=== PATIENT | female | born 1950 | race Caucasian/White ===

== ENCOUNTER 2023-06-14 14:26 | Inpatient (IN) ==
[2023-06-14 15:09] LABS: Hemoglobin 10.9 g/dL (11.5-14.3); Mean Corpuscular Hemoglobin 32.1 pg (27-33); Mean Corpuscular Volume 97.2 fL (80-97); Mean Platelet Volume 9.4 fL (7.5-11.2); Platelet Count 263 10^3/uL (150-450); Red Blood Count 3.39 10^6/uL (3.63-4.92); Red Cell Distribution Width 14.1 % (12-17); White Blood Count 16.2 10^3/uL (3.8-11.8)
[2023-06-14] MEDS: Morphine 4 MG/ML VIAL (1 ml) IV ONE (15:17)
[2023-06-14 15:22] LABS: INR 0.92 (0.83-1.13)
[2023-06-14 15:48] LABS: Albumin 4.1 g/dL (3.2-5.2); Albumin/Globulin Ratio 1.5 (1-3); Calcium 10.1 mg/dL (8.6-10.3); Creatinine, Serum 2.61 mg/dL (0.51-0.95); Direct Bilirubin 0.1 mg/dL (0.03-0.18); Globulin 2.8 g/dL (2-4); HDL Cholesterol 51.4 mg/dL; Indirect Bilirubin 0.5 mg/dL (0.3-1.0); Potassium 3.9 mmol/L (3.5-5.0); Total Bilirubin 0.6 mg/dL (0.2-1.0); Total Protein 6.9 g/dL (6.4-8.9); eGFR CKD-EPI 18.6 (>60)
[2023-06-14 16:05] LABS: ABS Lymphocytes 0.7 10^3/uL (1.0-4.8); ABS Monocytes 1.6 10^3/uL (0.0-0.9); ABS Neutrophils 13.9 10^3/uL (1.5-7.6); Eosinophil % 0.1 %; Lymphocyte % 4.5 %
[2023-06-14 16:27] LABS: Urine Appearance Turbid; Urine Bilirubin Negative (Negative); Urine Blood Trace (Negative); Urine Color Colorless; Urine Glucose 1+ (>=70 mg/dL) (Negative); Urine Ketones Negative (Negative); Urine Nitrite Negative (Negative); Urine Protein 1+ (>=30 mg/dL) (Negative); Urine Specific Gravity 1.011 (1.002-1.030); Urine Urobilinogen Negative (Negative)
[2023-06-14 17:17] LABS: Urine Bacteria 1+ /HPF (Absent); Urine Red Blood Cell 1+(3-5/hpf) /HPF (0-Trace); Urine White Blood Cell 3+(>20/hpf) /HPF (0-Trace)
[2023-06-14] MEDS ORDERED: Dextrose 50% Syringe 50 ml 25 GM/50 ML SYRINGE IV PUSH PRN (19:59)
[2023-06-14] MEDS ORDERED: Enoxaparin 40 MG/0.4 ML SYR SUBCUT SCH (21:00)
[2023-06-14] MEDS: Heparin 5000 UNITS/ML 1 mL VIAL SUBCUT SCH (21:25)
[2023-06-14 21:50] LABS: ABS Lymphocytes 0.3 10^3/uL (1.0-4.8); ABS Monocytes 1.3 10^3/uL (0.0-0.9); ABS Neutrophils 10.9 10^3/uL (1.5-7.6); ABS Nucleated RBC 0.01 10^3/ul; Eosinophil % 0.1 %; Hematocrit 31.8 % (35-45); Hemoglobin 10.8 g/dL (11.5-14.3); Lymphocyte % 2.7 %; Mean Corpuscular Hemoglobin 32.8 pg (27-33); Mean Corpuscular Hgb Conc 33.9 g/dL (31-36); Mean Corpuscular Volume 96.9 fL (80-97); Mean Platelet Volume 9.7 fL (7.5-11.2); Nucleated Red Blood Cells % 0.1 %/100WBC (0.0-0.8); Platelet Count 246 10^3/uL (150-450); Red Blood Count 3.28 10^6/uL (3.63-4.92); Red Cell Distribution Width 13.9 % (12-17); White Blood Count 12.6 10^3/uL (3.8-11.8)
[2023-06-14 21:52] LABS: Activated Partial Thrombo Time 25.6 seconds (26.0-38.0); INR 0.93 (0.83-1.13)
[2023-06-14 22:26] LABS: Creatinine, Serum 2.59 mg/dL (0.51-0.95); eGFR CKD-EPI 18.8 (>60)
[2023-06-15] MEDS: cefTRIAXone 1 gm/50 mL D5W 1 GM/50 ML BAG IV SCH (00:12)
[2023-06-15 07:20] LABS: Hematocrit 30.5 % (35-45); Hemoglobin 10.3 g/dL (11.5-14.3); Mean Corpuscular Hemoglobin 32.8 pg (27-33); Mean Corpuscular Hgb Conc 33.7 g/dL (31-36); Mean Corpuscular Volume 97.6 fL (80-97); Mean Platelet Volume 9.7 fL (7.5-11.2); Platelet Count 232 10^3/uL (150-450); Red Blood Count 3.13 10^6/uL (3.63-4.92); Red Cell Distribution Width 13.7 % (12-17); White Blood Count 12.5 10^3/uL (3.8-11.8)
[2023-06-15 07:48] LABS: Calcium 9.9 mg/dL (8.6-10.3); Creatinine, Serum 2.57 mg/dL (0.51-0.95); Potassium 3.9 mmol/L (3.5-5.0); eGFR CKD-EPI 18.9 (>60)
[2023-06-15] MEDS: Polyethylene Glycol 3350 17 GM PACKET PO SCH (08:57)
[2023-06-15 10:01] LABS: ABS Lymphocytes 0.5 10^3/uL (1.0-4.8); ABS Monocytes 1.8 10^3/uL (0.0-0.9); ABS Neutrophils 10.2 10^3/uL (1.5-7.6); Eosinophil % 0.1 %; Lymphocyte % 3.9 %
[2023-06-15] MEDS ORDERED: Sulfur Hexaflouride MICROSPHR 25 MG VIAL ONE (15:07)
[2023-06-15 17:46] LABS: Ferritin 56.4 ng/mL (11-307)
[2023-06-15 17:50] LABS: Folate 14.42 ng/mL (5.90-24.80)
[2023-06-15] MEDS: Nystatin TOP POWDER 15 GM BTL TOPICAL SCH (22:22)
[2023-06-15] MEDS: Lactated Ringers 1000 ml BAG 1,000 ML IV ONE (23:55)
[2023-06-17 06:05] LABS: ABS Monocytes 1.2 10^3/uL (0.0-0.9); ABS Neutrophils 4.5 10^3/uL (1.5-7.6); ABS Nucleated RBC 0.02 10^3/ul; Eosinophil % 0.1 %; Hematocrit 29.3 % (35-45); Lymphocyte % 15.4 %; Mean Corpuscular Hemoglobin 33.3 pg (27-33); Mean Corpuscular Hgb Conc 34.1 g/dL (31-36); Mean Corpuscular Volume 97.7 fL (80-97); Mean Platelet Volume 9.1 fL (7.5-11.2); Nucleated Red Blood Cells % 0.2 %/100WBC (0.0-0.8); Platelet Count 201 10^3/uL (150-450); Red Cell Distribution Width 14.2 % (12-17); White Blood Count 6.8 10^3/uL (3.8-11.8)
[2023-06-17] MEDS: Benzocaine/Menthol LOZ PO PRN (15:15)
[2023-06-17] MEDS ORDERED: Dextrose 50% Syringe 50 ml 25 GM/50 ML SYRINGE IV PUSH PRN (22:55)
[2023-06-18] MEDS ORDERED: Bismuth Subsalicylate (BTL) 525 MG/30 ML (BULK BTL) PO PRN (23:35)
[2023-06-19] MEDS: CMCS:OMEGA-3 FATTY ACID 1000 mg(NF) PO SCH (09:36)
[2023-06-19] MEDS: Calcium Carb (TUMS) 500 mg CHEW TAB PO SCH (09:37)
[2023-06-19] MEDS: Cholecalciferol (VIT D3) 1,000 unit TAB PO SCH (09:37)
[2023-06-19 17:41] LABS: ABS Lymphocytes 1.3 10^3/uL (1.0-4.8); ABS Monocytes 0.6 10^3/uL (0.0-0.9); ABS Neutrophils 4.9 10^3/uL (1.5-7.6); ABS Nucleated RBC 0.01 10^3/ul; Eosinophil % 0.5 %; Hemoglobin 9.6 g/dL (11.5-14.3); Lymphocyte % 18.4 %; Mean Corpuscular Hemoglobin 34.7 pg (27-33); Mean Corpuscular Hgb Conc 35.4 g/dL (31-36); Mean Corpuscular Volume 97.9 fL (80-97); Mean Platelet Volume 9.2 fL (7.5-11.2); Nucleated Red Blood Cells % 0.1 %/100WBC (0.0-0.8); Platelet Count 222 10^3/uL (150-450); Red Blood Count 2.75 10^6/uL (3.63-4.92); Red Cell Distribution Width 13.7 % (12-17); White Blood Count 6.8 10^3/uL (3.8-11.8)
[2023-06-19 18:05] LABS: Anion Gap 12 mmol/L (2-16); Blood Urea Nitrogen 50 mg/dL (6-24); C Reactive Protein 22.21 mg/L (<8.01); CO2 Carbon Dioxide 21 mmol/L (22-32); Calcium 8.9 mg/dL (8.6-10.3); Chloride 103 mmol/L (101-111); Creatinine, Serum 2.53 mg/dL (0.51-0.95); Glucose 283 mg/dL (70-100); Sodium 136 mmol/L (135-145); eGFR CKD-EPI 19.3 (>60)
[2023-06-19 18:15] LABS: ALT 32 U/L (7-52); AST 29 U/L (13-39); Albumin 3.1 g/dL (3.2-5.2); Albumin/Globulin Ratio 1.3 (1-3); Alkaline Phosphatase 82 U/L (35-149); Globulin 2.4 g/dL (2-4); Total Bilirubin 0.2 mg/dL (0.2-1.0); Total Protein 5.5 g/dL (6.4-8.9)
[2023-06-19] MEDS ORDERED: Valproic Acid IV 500 MG in NS 0.9% 100 ml BAG 100 ML IVPB SCH (22:00)
[2023-06-20 22:25] LABS: Glucose Confirmatory 498 mg/dL (70-100)
[2023-06-20] MEDS ORDERED: Dextrose 50% Syringe 50 ml 25 GM/50 ML SYRINGE IV PUSH PRN (22:34)
[2023-06-21 08:57] LABS: Hematocrit 31.6 % (35-45); Hemoglobin 10.8 g/dL (11.5-14.3); Mean Corpuscular Hemoglobin 33.3 pg (27-33); Mean Corpuscular Hgb Conc 34.3 g/dL (31-36); Mean Corpuscular Volume 97.1 fL (80-97); Mean Platelet Volume 8.5 fL (7.5-11.2); Platelet Count 259 10^3/uL (150-450); Red Blood Count 3.25 10^6/uL (3.63-4.92); Red Cell Distribution Width 13.8 % (12-17); White Blood Count 9.9 10^3/uL (3.8-11.8)
[2023-06-21 09:40] LABS: Calcium 9.1 mg/dL (8.6-10.3); Creatinine, Serum 2.2 mg/dL (0.51-0.95); Potassium 4.8 mmol/L (3.5-5.0); eGFR CKD-EPI 22.8 (>60)
[2023-06-21 09:58] LABS: ABS Lymphocytes 1.4 10^3/uL (1.0-4.8); ABS Monocytes 0.9 10^3/uL (0.0-0.9); ABS Neutrophils 7.6 10^3/uL (1.5-7.6); ABS Nucleated RBC 0.01 10^3/ul; Eosinophil % 0.2 %; Lymphocyte % 14.2 %; Nucleated Red Blood Cells % 0.1 %/100WBC (0.0-0.8); RBC Morphology Normal (Normal)
[2023-06-24 13:12] LABS: Hematocrit 38.3 % (35-45); Hemoglobin 12.7 g/dL (11.5-14.3); Mean Corpuscular Hemoglobin 32.6 pg (27-33); Mean Corpuscular Hgb Conc 33.1 g/dL (31-36); Mean Corpuscular Volume 98.6 fL (80-97); Platelet Count 380 10^3/uL (150-450); Red Blood Count 3.88 10^6/uL (3.63-4.92); Red Cell Distribution Width 13.8 % (12-17); White Blood Count 13.6 10^3/uL (3.8-11.8)
[2023-06-24 13:17] LABS: Glucose Confirmatory 412 mg/dL (70-100)
[2023-06-24 14:34] LABS: ABS Lymphocytes 1.1 10^3/uL (1.0-4.8); ABS Monocytes 1.2 10^3/uL (0.0-0.9); ABS Neutrophils 11.3 10^3/uL (1.5-7.6); ABS Nucleated RBC 0.02 10^3/ul; Eosinophil % 0.1 %; Lymphocyte % 8.1 %; Nucleated Red Blood Cells % 0.2 %/100WBC (0.0-0.8)
[2023-06-24 19:23] LABS: Polychromasia 2+
[2023-06-24 19:24] LABS: Anisocytosis 1+; RBC Morphology Normal (Normal); Target Cells 1+; Tear Drop Cells 1+
[2023-06-25] MEDS: Polyethylene Glycol 3350 17 GM PACKET PO ONE (05:16)
[2023-06-25 16:52] LABS: Glucose Confirmatory 489 mg/dL (70-100)
[2023-06-26 06:41] LABS: Hematocrit 31.1 % (35-45); Hemoglobin 10.7 g/dL (11.5-14.3); Mean Corpuscular Hemoglobin 32.9 pg (27-33); Mean Corpuscular Hgb Conc 34.3 g/dL (31-36); Mean Platelet Volume 9.1 fL (7.5-11.2); Platelet Count 335 10^3/uL (150-450); Red Blood Count 3.24 10^6/uL (3.63-4.92); Red Cell Distribution Width 13.9 % (12-17); White Blood Count 16.7 10^3/uL (3.8-11.8)
[2023-06-26 07:28] LABS: Calcium 9.6 mg/dL (8.6-10.3); Creatinine, Serum 2.96 mg/dL (0.51-0.95); Potassium 5.3 mmol/L (3.5-5.0)
[2023-06-26 08:17] LABS: ABS Lymphocytes 1.1 10^3/uL (1.0-4.8); ABS Monocytes 1.3 10^3/uL (0.0-0.9); ABS Neutrophils 14.2 10^3/uL (1.5-7.6); ABS Nucleated RBC 0.01 10^3/ul; Anisocytosis 1+; Lymphocyte % 6.8 %; Tear Drop Cells 1+
[2023-06-27 09:21] LABS: Hematocrit 31.9 % (35-45); Hemoglobin 10.8 g/dL (11.5-14.3); Mean Corpuscular Hemoglobin 32.9 pg (27-33); Mean Corpuscular Hgb Conc 33.9 g/dL (31-36); Mean Corpuscular Volume 96.9 fL (80-97); Platelet Count 327 10^3/uL (150-450); Red Cell Distribution Width 13.8 % (12-17); White Blood Count 10.7 10^3/uL (3.8-11.8)
[2023-06-27 09:41] LABS: Calcium 9.3 mg/dL (8.6-10.3); Creatinine, Serum 2.92 mg/dL (0.51-0.95); Potassium 5.2 mmol/L (3.5-5.0); eGFR CKD-EPI 16.2 (>60)
[2023-06-27 10:06] LABS: ABS Lymphocytes 0.9 10^3/uL (1.0-4.8); ABS Monocytes 0.8 10^3/uL (0.0-0.9); ABS Neutrophils 8.9 10^3/uL (1.5-7.6); Lymphocyte % 8.9 %; RBC Morphology Normal (Normal)
[2023-06-28 06:28] LABS: Hematocrit 30.1 % (35-45); Hemoglobin 10.2 g/dL (11.5-14.3); Mean Corpuscular Hemoglobin 32.8 pg (27-33); Mean Corpuscular Volume 96.4 fL (80-97); Mean Platelet Volume 9.2 fL (7.5-11.2); Platelet Count 326 10^3/uL (150-450); Red Blood Count 3.12 10^6/uL (3.63-4.92); Red Cell Distribution Width 13.9 % (12-17); White Blood Count 10.2 10^3/uL (3.8-11.8)
[2023-06-28 06:46] LABS: Calcium 9.3 mg/dL (8.6-10.3); Creatinine, Serum 3.01 mg/dL (0.51-0.95); Magnesium 2.3 mg/dL (1.9-2.7); Potassium 4.9 mmol/L (3.5-5.0); eGFR CKD-EPI 15.7 (>60)
[2023-06-28 08:23] LABS: ABS Monocytes 0.8 10^3/uL (0.0-0.9); ABS Neutrophils 8.4 10^3/uL (1.5-7.6); ABS Nucleated RBC 0.01 10^3/ul; Lymphocyte % 9.5 %; Nucleated Red Blood Cells % 0.1 %/100WBC (0.0-0.8); RBC Morphology Normal (Normal)
[2023-06-28] MEDS: NS 0.9% 1000 ml BAG 1,000 ML IV SCH (15:52)
[2023-06-28] MEDS: Insulin GLARGINE 100 un/ml 10 ml VIAL SUBCUT SCH (22:00)
[2023-06-29 08:28] LABS: Hematocrit 28.2 % (35-45); Hemoglobin 9.3 g/dL (11.5-14.3); Mean Corpuscular Hemoglobin 32.5 pg (27-33); Mean Corpuscular Hgb Conc 32.9 g/dL (31-36); Mean Platelet Volume 9.4 fL (7.5-11.2); Platelet Count 247 10^3/uL (150-450); Red Blood Count 2.85 10^6/uL (3.63-4.92); Red Cell Distribution Width 14.2 % (12-17); White Blood Count 9.7 10^3/uL (3.8-11.8)
[2023-06-29 09:01] LABS: ABS Lymphocytes 1.1 10^3/uL (1.0-4.8); ABS Monocytes 0.8 10^3/uL (0.0-0.9); ABS Neutrophils 7.9 10^3/uL (1.5-7.6); ABS Nucleated RBC 0.01 10^3/ul; Hypochromasia 1+; Lymphocyte % 10.9 %; Nucleated Red Blood Cells % 0.1 %/100WBC (0.0-0.8)
[2023-06-29 09:13] LABS: Anion Gap 12 mmol/L (2-16); Blood Urea Nitrogen 84 mg/dL (6-24); CO2 Carbon Dioxide 15 mmol/L (22-32); Calcium 8.7 mg/dL (8.6-10.3); Chloride 104 mmol/L (101-111); Creatinine, Serum 2.43 mg/dL (0.51-0.95); Glucose 172 mg/dL (70-100); Sodium 131 mmol/L (135-145); eGFR CKD-EPI 20.2 (>60)
[2023-06-29 09:57] LABS: PCO2 Arterial 37 mmHg (35-45)
[2023-06-29 10:05] LABS: PO2 Arterial 42 mmHg (80-100)
[2023-06-29] MEDS: SODIUM BICARB IV SCH (10:47)
[2023-06-29] MEDS: D5W IV SCH (10:47)
[2023-06-29] MEDS: 1/2 NS IV SCH (10:47)
[2023-06-29 11:30] LABS: Calcium 8.9 mg/dL (8.6-10.3); Creatinine, Serum 2.77 mg/dL (0.51-0.95); Magnesium 2.2 mg/dL (1.9-2.7); Phosphorus 4.6 mg/dL (2.5-5.0); Potassium 4.4 mmol/L (3.5-5.0); eGFR CKD-EPI 17.3 (>60)
[2023-06-29] MEDS: DULoxetine DR 20 mg CAP PO SCH (16:28)
[2023-06-29] MEDS: Insulin GLARGINE 100 un/ml 10 ml VIAL SUBCUT SCH (21:14)
[2023-06-30 09:16] LABS: Calcium 8.8 mg/dL (8.6-10.3); Creatinine, Serum 2.36 mg/dL (0.51-0.95); Phosphorus 3.6 mg/dL (2.5-5.0); Potassium 4.2 mmol/L (3.5-5.0)
[2023-06-30] MEDS: 1/2 NS IV SCH ×2 (14:45→15:45)
[2023-06-30] MEDS: SODIUM BICARB IV SCH ×2 (14:45→15:45)
[2023-06-30] MEDS: D5W IV SCH ×2 (14:45→15:45)
[2023-06-30] MEDS: Furosemide 20 mg/2 ml IV VIAL IV SCH (16:31)
[2023-06-30 17:06] LABS: Hematocrit 30.6 % (35-45); Hemoglobin 10.5 g/dL (11.5-14.3); Mean Corpuscular Hemoglobin 32.8 pg (27-33); Mean Corpuscular Hgb Conc 34.2 g/dL (31-36); Mean Corpuscular Volume 96.1 fL (80-97); Mean Platelet Volume 9.1 fL (7.5-11.2); Platelet Count 363 10^3/uL (150-450); Red Blood Count 3.19 10^6/uL (3.63-4.92); Red Cell Distribution Width 13.6 % (12-17); White Blood Count 11.5 10^3/uL (3.8-11.8)
[2023-06-30 17:26] LABS: Glucose Confirmatory 412 mg/dL (70-100)
[2023-06-30 17:27] LABS: ABS Neutrophils 9.5 10^3/uL (1.5-7.6); ABS Nucleated RBC 0.02 10^3/ul; Eosinophil % 0.1 %; Lymphocyte % 8.6 %; Nucleated Red Blood Cells % 0.1 %/100WBC (0.0-0.8)
[2023-06-30] MEDS ORDERED: Dextrose 50% Syringe 50 ml 25 GM/50 ML SYRINGE IV PUSH PRN (17:40)
[2023-06-30] MEDS: Insulin GLARGINE 100 un/ml 10 ml VIAL SUBCUT SCH (20:42)
[2023-07-01] MEDS: D5W IV SCH (05:11)
[2023-07-01] MEDS: 1/2 NS IV SCH (05:11)
[2023-07-01] MEDS: SODIUM BICARB IV SCH (05:11)
[2023-07-01 05:53] LABS: Hematocrit 26.2 % (35-45); Hemoglobin 9.1 g/dL (11.5-14.3); Mean Corpuscular Hemoglobin 33.2 pg (27-33); Mean Corpuscular Hgb Conc 34.9 g/dL (31-36); Mean Corpuscular Volume 95.3 fL (80-97); Mean Platelet Volume 8.9 fL (7.5-11.2); Platelet Count 248 10^3/uL (150-450); Red Blood Count 2.75 10^6/uL (3.63-4.92); Red Cell Distribution Width 13.9 % (12-17); White Blood Count 9.2 10^3/uL (3.8-11.8)
[2023-07-01 06:10] LABS: ABS Lymphocytes 0.8 10^3/uL (1.0-4.8); ABS Monocytes 0.9 10^3/uL (0.0-0.9); ABS Neutrophils 7.4 10^3/uL (1.5-7.6); Eosinophil % 0.2 %; Lymphocyte % 9.2 %
[2023-07-01 06:32] LABS: Albumin 3.2 g/dL (3.2-5.2); Albumin/Globulin Ratio 1.5 (1-3); Calcium 8.6 mg/dL (8.6-10.3); Creatinine, Serum 2.14 mg/dL (0.51-0.95); Globulin 2.2 g/dL (2-4); Indirect Bilirubin 0.4 mg/dL (0.3-1.0); Phosphorus 3.3 mg/dL (2.5-5.0); Potassium 4.2 mmol/L (3.5-5.0); Total Bilirubin 0.4 mg/dL (0.2-1.0); Total Protein 5.4 g/dL (6.4-8.9); eGFR CKD-EPI 23.6 (>60)
[2023-07-01] MEDS: Insulin GLARGINE 100 un/ml 10 ml VIAL SUBCUT SCH (21:31)
[2023-07-02 06:11] LABS: Hematocrit 31.1 % (35-45); Hemoglobin 10.6 g/dL (11.5-14.3); Mean Corpuscular Hemoglobin 33.1 pg (27-33); Mean Corpuscular Hgb Conc 34.2 g/dL (31-36); Mean Corpuscular Volume 96.8 fL (80-97); Platelet Count 301 10^3/uL (150-450); Red Blood Count 3.22 10^6/uL (3.63-4.92); Red Cell Distribution Width 14.4 % (12-17)
[2023-07-02 06:35] LABS: ABS Lymphocytes 1.1 10^3/uL (1.0-4.8); ABS Neutrophils 7.9 10^3/uL (1.5-7.6); Eosinophil % 0.2 %; RBC Morphology Normal (Normal)
[2023-07-02 06:45] LABS: Calcium 9.5 mg/dL (8.6-10.3); Creatinine, Serum 2.25 mg/dL (0.51-0.95); Magnesium 2.2 mg/dL (1.9-2.7); Phosphorus 3.9 mg/dL (2.5-5.0); Potassium 4.4 mmol/L (3.5-5.0); eGFR CKD-EPI 22.2 (>60)
[2023-07-03 06:57] LABS: Hematocrit 28.8 % (35-45); Hemoglobin 9.8 g/dL (11.5-14.3); Mean Corpuscular Hemoglobin 33.1 pg (27-33); Mean Corpuscular Hgb Conc 34.2 g/dL (31-36); Mean Corpuscular Volume 96.8 fL (80-97); Mean Platelet Volume 9.1 fL (7.5-11.2); Platelet Count 297 10^3/uL (150-450); Red Blood Count 2.97 10^6/uL (3.63-4.92); Red Cell Distribution Width 13.9 % (12-17); White Blood Count 10.5 10^3/uL (3.8-11.8)
[2023-07-03 07:24] LABS: ABS Lymphocytes 1.2 10^3/uL (1.0-4.8); ABS Neutrophils 8.2 10^3/uL (1.5-7.6); ABS Nucleated RBC 0.01 10^3/ul; Eosinophil % 0.3 %; Lymphocyte % 11.7 %; Nucleated Red Blood Cells % 0.1 %/100WBC (0.0-0.8); RBC Morphology Normal (Normal)
[2023-07-03 07:34] LABS: Calcium 9.4 mg/dL (8.6-10.3); Creatinine, Serum 2.32 mg/dL (0.51-0.95); Magnesium 2.1 mg/dL (1.9-2.7); Phosphorus 3.9 mg/dL (2.5-5.0); Potassium 4.4 mmol/L (3.5-5.0); eGFR CKD-EPI 21.4 (>60)
[2023-07-03] MEDS: Calcium Carb (TUMS) 500 mg CHEW TAB PO SCH (08:45)
[2023-07-03] MEDS: Insulin GLARGINE 100 un/ml 10 ml VIAL SUBCUT SCH (21:33)
[2023-07-04 09:39] VITALS: BP 149/75
== END 2023-07-04 13:00 | DRG 682 ==
LOC: EDHOLD 14:26 → ED 14:26 → INTOOBSV 15:54 → OBSVTOIN 15:54 → SUATTDRO 15:54 → MEDTELE 18:48 → SUATTDRO 06-16 12:00 → MED 07-02 16:28
PROVIDERS: ADMIT Student in an Organized Health Care Education/Training Program; ATTEND Internal Medicine